=== PATIENT | male | born 2000 | race Caucasian/White ===

== ENCOUNTER 2023-01-29 09:19 | Emergency (ER) | payer SELFPAY ==
[2023-01-29] MEDS ORDERED: Albuterol/Ipratropium 3.0-0.5 MG/3 ML Neb Soln ONE (09:55)
[2023-01-29] MEDS ORDERED: Albuterol/Ipratropium 3.0-0.5 MG/3 ML Neb Soln NEB ONE ×2 (09:56→10:52)
[2023-01-29] MEDS ORDERED: Dexamethasone 6 MG TABLET PO ONE (11:17)
[2023-01-29] MEDS ORDERED: Albuterol 6.7 GM Inhaler INH SCH (11:30)
== END 2023-01-29 11:35 | disposition home or self-care (01) ==
LOC: JD.ED 09:19
DX: J40 Bronchitis, not specified as acute or chronic (principal); Z88.5 Allergy status to narcotic agent; Z88.8 Allergy status to other drugs, medicaments and biological substances
CPT/HCPCS: 71045; 87635; 94640; 99284; A9270; J8540; 99283; J7620-GY; U0002